=== PATIENT | male | born 1940 | race Caucasian/White ===

== ENCOUNTER → 2019-06-07 09:43 | Outpatient (CLI) | payer MEDICARE, OTHER ==
[2019-03-27 10:20] VITALS: BMI 30.8
[~2019-06-07 09:43] MED LIST: ASPIRIN81 MG PO; COZAAR100 MG PO; TENORMIN50 MG; ZOCOR40 MG PO
== END | disposition home or self-care (01) ==
LOC: D.HCCECHO 09:43
PROVIDERS: ATTEND Internal Medicine Cardiovascular Disease
DX: I42.9 Cardiomyopathy, unspecified (principal)